=== PATIENT | female | born 1985 | race Caucasian/White ===

== ENCOUNTER 2017-08-08 22:06 | Emergency (ER) | payer MEDICAID ==
[~2017-08-08] VITALS: Ht 170.2 cm; Wt 87.2 kg
[~2017-08-08 22:06] MED LIST: ALPR2TAB4 PO; ARIP10TA33 PO; BUTA1CAP30 PO; FLUO40CA9 PO; HYDR-3307 PO
[2017-08-08] MEDS ORDERED: LIDOCAINE 2% VISCOUS, 100ML MM ONE (23:00)
[2017-08-08] MEDS ORDERED: LIDOCAINE 2% VISCOUS 15 ML UDC MM ONE (23:00)
[2017-08-08] MEDS ORDERED: LIDOCAINE GEL 2%, 5ML ONE (23:05)
[2017-08-08 23:17] LABS: HEMATOCRIT 35.5 % (34.6-47.8); HEMOGLOBIN 12.1 g/dL (11.7-16.4); WHITE BLOOD COUNT 7.5 x10^3/uL (3.4-10)
[2017-08-08] MEDS ORDERED: LIDOCAINE GEL 2%, 5ML MM ONE (23:30)
[2017-08-09] MEDS ORDERED: OXYcodone/APAP 5/325MG TABLET ONE (00:11)
[2017-08-09] MEDS ORDERED: OXYcodone/APAP 10/325MG TABLET PO ONE (00:30)
[2017-08-09 01:10] VITALS: BP 107/59
== END 2017-08-09 01:12 | disposition home or self-care (01) ==
LOC: ED 23:30
DX: K64.8 Other hemorrhoids (principal); Z90.49 Acquired absence of other specified parts of digestive tract; Z98.84 Bariatric surgery status
CPT/HCPCS: 36415; 46600; 85025

== ENCOUNTER 2020-09-20 17:27 | Emergency (ER) | payer MEDICAID ==
[~2020-09-20] VITALS: Ht 170.2 cm; Wt 76.5 kg
[~2020-09-20 17:27] MED LIST changes: +HYDR-3246 PO; -HYDR-3307 PO
[2020-09-20] MEDS ORDERED: SODIUM CHLORIDE 0.9% 1,000ML IVBOLUS ONE (18:00)
[2020-09-20] MEDS ORDERED: SODIUM CHLORIDE FLUSH 10ML SYR IVF ONE (18:00)
[2020-09-20] MEDS ORDERED: ONDANSETRON 2MG/ML, 2ML IVPush ONE (18:00)
[2020-09-20] MEDS ORDERED: SODIUM CHLORIDE 0.9% 1,000 ML IV ONE (18:00)
[2020-09-20] MEDS ORDERED: ONDANSETRON 2MG/ML, 2ML ONE (18:17)
--- NOTE | 2020-09-20 18:35 | NUR ---
PT WITH C/O BEING "SICK" SINCE SATURDAY, PT WITH NAUSEA AND VOMITTING. PT THEN STATES SHE WOKE UP A COUPLE DAYS AGO WITH SOME BITE REYES "I DONT KNOW IF IT WAS A BUG OR A SPIDER" PT DID SEARCH FOR BED BUGS, STATES NONE WERE FOUND. PT DENIES URINARY SYMPTOMS OR DIARRHEA. PT TO CONT PULSE OX, BP. PIV INITIATED, PT MEDICATED PER NOV
--- NOTE | 2020-09-20 18:58 | NUR ---
Report rec'd from Dolores CISNEROS. Patient resting comfortably, on cell phone. VSS. Call light within reach
[2020-09-20 18:59] LABS: ALANINE AMINOTRANSFERASE 21 U/L (12-78); ALBUMIN 3.1 g/dL (3.4-5.0); ANION GAP 8 mmol/L (5-15); CHLORIDE 111 mmol/L (98-107); CREATININE 0.75 mg/dL (0.55-1.02)
[2020-09-20 19:00] LABS: BASOPHILS % (AUTO) 1 % (0-1); EOSINOPHILS % (AUTO) 2 % (1-7); LYMPHOCYTES % (AUTO) 26 % (22-44); MEAN CORPUSCULAR HEMOGLOBIN 27.5 pg (27.0-34.8); MEAN CORPUSCULAR HGB CONC 32.4 g/dL (32.4-35.8); MEAN PLATELET VOLUME 6.8 fL (7.4-10.4); MONOCYTES % (AUTO) 11 % (2-9); NEUTROPHILS % (AUTO) 60 % (42-75); PLATELET COUNT 331 x10^3/uL (130-400); RED BLOOD COUNT 4.01 x10^6/uL (3.82-5.3); RED CELL DISTRIBUTION WIDTH 16.6 % (9.6-15.2)
[2020-09-20 19:01] LABS: MD NO
[2020-09-20 19:03] LABS: ALKALINE PHOSPHATASE 74 U/L (45-117); BILIRUBIN,TOTAL 0.4 mg/dL (0.2-1.0); TOTAL PROTEIN 6.2 g/dL (6.4-8.2)
[2020-09-20] MEDS ORDERED: DIPHENHYDRAMINE 50 MG/ML, 1ML ONE (19:07)
[2020-09-20] MEDS ORDERED: DIPHENHYDRAMINE 50 MG/ML, 1ML IVPush ONE (19:30)
[2020-09-20 20:01] LABS: MICROSCOPIC NOT IND
[2020-09-20 21:08] VITALS: BP 121/75
== END 2020-09-20 21:19 | disposition home or self-care (01) ==
LOC: ED 17:48
DX: R11.2 Nausea with vomiting, unspecified (principal); R10.10 Upper abdominal pain, unspecified
CPT/HCPCS: 36415; 80053; 81003; 83690; 84703; 85025; 96361; 96374; 99283; J2405; J7030